=== PATIENT | male | born 1980 | race Caucasian/White ===

== ENCOUNTER 2017-05-31 14:12 | Emergency (ER) | payer OTHER ==
[~2017-05-31] VITALS: Ht 177.8 cm; Wt 68.5 kg
[~2017-05-31 14:12] MED LIST: ALBUTEROL SULF8.5 GM IH; KEFLEX500 MG PO; METRONIDAZOLE500 MG PO; OMEPRAZOLE20 M3 PO; OXYCODONE HCL5 MG PO; PREDNISONE20 MG PO; TESSALON PERLE100 MG PO; ULTRAM50 MG PO; ZESTRIL,PRINIVI40 MG PO; ZITHROMAX250 MG PO; [UNRECOGNIZED DRUG - OTHER] PO
[2017-05-31 15:17] LABS: BASOPHIL COUNT 0.1 K/uL (0-0.1); EOSINOPHIL (%) 1.2 % (0-5); EOSINOPHIL COUNT 0.2 K/uL (0-0.3); HEMATOCRIT 54.2 % (38.0-50.0); IMMATURE GRANULOCYTE (%) 0.4 % (0.0-0.7); IMMATURE GRANULOCYTE COUNT 0.1 K/uL; INSTRUMENT ABS NEUTROPHIL CT 10.9 K/uL; LYMPHOCYTE COUNT 1.6 K/uL (1.0-2.8); MCH 31.4 PG (29.0-34.0); MCHC 34.7 G/DL (30.0-36.0); MCV 90.5 FL (86-99); MEAN PLAT.VOLUME 10.6 uM^3 (9.0-12.4); MONOCYTE (%) 8.5 % (3-12); MONOCYTE COUNT 1.2 K/uL (0-0.8); NEUTROPHIL (%) 77.9 % (45-76); NEUTROPHIL COUNT 10.9 K/uL (1.8-6.4); PLATELET COUNT 210 K/uL (156-360); RBC DIS.WIDTH-CV 11.7 % (11.8-14.6); RBC DIS.WIDTH-SD 38.9 % (39-53); RED BLOOD COUNT 5.99 M/uL (4.00-5.50)
[2017-05-31 15:26] LABS: CHLORIDE 101 mEq/L (99-109); POTASSIUM 5.4 mEq/L (3.7-5.4); SODIUM 140 mEq/L (136-147)
[2017-05-31 15:28] LABS: GLUCOSE 95 mg/dL (70-99)
[2017-05-31 15:29] LABS: ANION GAP 10 MEQ/L (2-14)
[2017-05-31 15:32] LABS: GFR ESTIMATE (CALCULATED) > 59 mL/min/; UREA NITROGEN (BUN) 7 mg/dL (9-23)
[2017-05-31] MEDS ORDERED: CLINDAMYCIN HC300 MG PO (23:10)
[2017-05-31] MEDS ORDERED: CLEOCIN150 MG PO (23:10)
[2017-05-31 23:54] VITALS: BP 149/99
== END 2017-06-01 00:01 | disposition home or self-care (01) ==
LOC: EME 14:12
PROVIDERS: Physician Assistant
DX: L02.11 Cutaneous abscess of neck (principal); L02.214 Cutaneous abscess of groin; L02.31 Cutaneous abscess of buttock; B95.62 Methicillin resistant Staphylococcus aureus infection as the cause of diseases classified elsewhere; I10 Essential (primary) hypertension; F41.9 Anxiety disorder, unspecified; F17.200 Nicotine dependence, unspecified, uncomplicated
CPT/HCPCS: 70491; 80048; 83605; 85025; 99281; 99285; J2270